=== PATIENT | male | born 1995 | race Two or more races ===

== ENCOUNTER 2017-03-03 16:06 | Inpatient (IN) | payer MEDICAID ==
[~2017-03-03] VITALS: Ht 182.9 cm; Wt 103.6 kg
[~2017-03-03 16:06] MED LIST: CITA-77 PO; LEVE500T22 PO; PHE100C PO; RIZA10TA24 PO
[2017-03-03] MEDS ORDERED: ONDANSETRON HCL 4 MG/2 ML VIAL IV ONE ×2 (17:30→21:00)
[2017-03-03] MEDS ORDERED: HYDROmorphone HCL 2 MG/ML VL IV ONE ×2 (17:30→21:00)
[2017-03-03] MEDS ORDERED: SODIUM CHLORIDE 0.9% 1,000 ML IV ONE (17:30)
[2017-03-03] MEDS ORDERED: LORazepam 2MG/ML-1ML VIAL IV ONE (17:30)
[2017-03-03 17:47] LABS: Basophils # (auto) 0 uL; Basophils % (auto) 0.4 % (0.0-2.0); Eosinophils # (auto) 0 uL; Eosinophils % (auto) 0.3 % (0.0-7.0); Hematocrit 47.3 % (41.0-53.0); Hemoglobin 15.6 g/dL (13.5-17.5); Lymphocytes # (auto) 1.7 uL; Lymphocytes % (auto) 20.4 % (10.0-50.0); Mean Corpuscular Hemoglobin 28.2 pg (28.0-32.0); Mean Corpuscular Volume 85.4 fL (80.0-100.0); Mean Platelet Volume 8.4 fL (7.4-10.4); Monocytes # (auto) 0.5 uL; Monocytes % (auto) 5.6 % (0.0-12.0); Neutrophils % (auto) 73.3 % (37.0-80.0); Platelet Count (auto) 235 10^3/uL (140-450); Red Cell Distribution Width 13.7 % (11.6-16.0); White Blood Cell 8.1 10^3/uL (4.4-10.8)
[2017-03-03 18:02] LABS: Albumin 3.8 g/dL (3.4-5.0); Calcium 8.2 mg/dL (8.5-10.1); Potassium 3.5 mmol/L (3.5-5.1)
[2017-03-03 18:04] LABS: BUN/Creatinine Ratio 15.2
[2017-03-03 18:10] LABS: Bilirubin, Total 0.4 mg/dL (0.2-1.0); Total Protein 6.7 g/dL (6.4-8.2)
[2017-03-03] MEDS ORDERED: KETOROLAC TROMETH 30 MG/ML 1ML VIAL IV ONE (20:00)
[2017-03-03] MEDS ORDERED: LORazepam 0.5 MG TAB PO PRN (21:30)
[2017-03-03] MEDS ORDERED: ONDANSETRON HCL 4 MG/2 ML VIAL IV PRN (21:30)
[2017-03-03] MEDS ORDERED: PHENYTOIN SODIUM 100 MG CAP PO SCH (22:00)
[2017-03-03] MEDS ORDERED: LEVETIRACETAM 500 MG TAB PO SCH (22:00)
[2017-03-03] MEDS: GABAPENTIN 300 MG CAP PO SCH (23:05)
[2017-03-03] MEDS: TOPIRAMATE 100 MG TAB PO SCH (23:06)
[2017-03-03 23:32] VITALS: BP 124/69
[2017-03-03 23:45] VITALS: BP 124/69
[2017-03-04 00:36] LABS: Urine Bilirubin Negative (Negative); Urine Blood Negative /uL (Negative); Urine Color Yellow (Yellow); Urine Glucose Normal (Normal); Urine Ketone Negative (Negative); Urine Mucus FEW (None Seen); Urine Nitrite Negative (Negative); Urine RBC <1 /hpf (0 - 3); Urine Squamous Epithelial Cell FEW /hpf (<5); Urine Urobilinogen Normal (Negative)
[2017-03-04] MEDS: OXYCODONE HCL 5MG TAB PO PRN ×3 (00:46→10:52)
[2017-03-04 05:19] VITALS: BP 111/60
[2017-03-04] MEDS: LORazepam 2MG/ML-1ML VIAL IV PRN ×5 (06:05→20:46)
[2017-03-04] MEDS: GABAPENTIN 300 MG CAP PO SCH ×2 (06:17→13:45)
[2017-03-04 08:00] VITALS: BP 133/92
[2017-03-04 09:00] VITALS: BP 133/94
[2017-03-04] MEDS: TOPIRAMATE 100 MG TAB PO SCH (10:00)
[2017-03-04] MEDS ORDERED: LEVETIRACETAM 500 MG TAB PO SCH (13:15)
[2017-03-04] MEDS ORDERED: ACETAMINOPHEN 325 MG TAB PO PRN (13:15)
[2017-03-04] MEDS ORDERED: HYDROcodone-ACET 5/325MG TAB PO PRN (13:15)
[2017-03-04] MEDS ORDERED: GABA300C PO (14:10)
[2017-03-04] MEDS ORDERED: TOPI100T29 PO (14:10)
[2017-03-04 15:13] VITALS: BP 123/80
[2017-03-04 16:55] VITALS: BP 133/94
[2017-03-04 17:50] VITALS: BP 120/72
== END 2017-03-04 21:07 | disposition home health service (06) | DRG 53 ==
LOC: EDBD 16:06 → ER 16:07 → TELE 16:08 → TELE-WESTW 23:07
PROVIDERS: ADMIT Internal Medicine; ATTEND Internal Medicine
DX: G40.909 Epilepsy, unspecified, not intractable, without status epilepticus (principal); F32.9 Major depressive disorder, single episode, unspecified; F41.9 Anxiety disorder, unspecified; R51 Headache; Z82.49 Family history of ischemic heart disease and other diseases of the circulatory system; Z83.3 Family history of diabetes mellitus; Z88.6 Allergy status to analgesic agent; Z88.8 Allergy status to other drugs, medicaments and biological substances; Z80.9 Family history of malignant neoplasm, unspecified
CPT/HCPCS: 36415; 70450; 72131; 73030; 73140; 80053; 81001; 85025; 93005; 96361; 96374; 96375; 96376; 99291; G0434; J2405

== ENCOUNTER 2017-06-05 15:31 | Inpatient (IN) | payer MEDICAID ==
[~2017-06-05] VITALS: Ht 177.8 cm; Wt 90.7 kg
[~2017-06-05 15:31] MED LIST changes: -CITA-77 PO; +GABA300C PO; -LEVE500T22 PO; -PHE100C PO; -RIZA10TA24 PO; +TOPI100T29 PO
[2017-06-05] MEDS ORDERED: LORazepam 2MG/ML-1ML VIAL ONE ×2 (15:57→16:39)
[2017-06-05] MEDS ORDERED: LORazepam 2MG/ML-1ML VIAL IV ONE ×3 (16:00→17:30)
[2017-06-05 16:13] LABS: Basophils # (auto) 0 uL; Basophils % (auto) 0.4 % (0.0-2.0); CONDITION Y; Eosinophils # (auto) 0 uL; Eosinophils % (auto) 0.6 % (0.0-7.0); Hematocrit 43.3 % (41.0-53.0); Hemoglobin 14.7 g/dL (13.5-17.5); Lymphocytes # (auto) 2.3 uL; Lymphocytes % (auto) 30.9 % (10.0-50.0); Mean Corpuscular Hemoglobin 28.9 pg (28.0-32.0); Mean Corpuscular Hgb Conc. 33.8 g/dL (32.0-36.0); Mean Corpuscular Volume 85.4 fL (80.0-100.0); Mean Platelet Volume 8.5 fL (7.4-10.4); Monocytes # (auto) 0.4 uL; Monocytes % (auto) 5.7 % (0.0-12.0); Neutrophils # (auto) 4.6 uL; Neutrophils % (auto) 62.4 % (37.0-80.0); Platelet Count (auto) 214 10^3/uL (140-450); Red Cell Distribution Width 13.7 % (11.6-16.0); White Blood Cell 7.4 10^3/uL (4.4-10.8)
[2017-06-05 16:25] LABS: Albumin 3.8 g/dL (3.4-5.0); BUN/Creatinine Ratio 15.5; Calcium 8.3 mg/dL (8.5-10.1); Potassium 3.3 mmol/L (3.5-5.1)
[2017-06-05 16:27] LABS: Bilirubin, Total 0.3 mg/dL (0.2-1.0); Total Protein 7.1 g/dL (6.4-8.2)
[2017-06-05 17:17] LABS: Urine Bilirubin Negative (Negative); Urine Blood Negative /uL (Negative); Urine Glucose Normal (Normal); Urine Ketone Negative (Negative); Urine Nitrite Negative (Negative); Urine RBC 1 /hpf (0 - 3); Urine Squamous Epithelial Cell FEW /hpf (<5); Urine Urobilinogen Normal (Negative); Urine pH 5.5 (5.0-8.0)
[2017-06-05 17:18] LABS: Urine Color Straw (Yellow)
[2017-06-05] MEDS ORDERED: NITROGLYCERIN 0.4 MG SL TAB SL PRN (21:30)
[2017-06-05] MEDS ORDERED: MORPHINE SULF INJ 2 MG/ML SYRINGE 1ML IV PRN (21:30)
[2017-06-05] MEDS ORDERED: ONDANSETRON HCL 4 MG/2 ML VIAL IV PRN (21:30)
[2017-06-05] MEDS: GABAPENTIN 300 MG CAP PO SCH (22:00)
[2017-06-05] MEDS: FAMOTIDINE 20 MG TAB PO SCH (22:00)
[2017-06-05] MEDS: SODIUM CHLORIDE 0.9% 1,000 ML IV SCH (22:00)
[2017-06-05] MEDS: TOPIRAMATE 100 MG TAB PO SCH (22:00)
[2017-06-06] VITALS (7 sets, daily range): BP systolic 115–143; BP diastolic 52–85
[2017-06-06] MEDS: GABAPENTIN 300 MG CAP PO SCH ×3 (06:14→21:16)
[2017-06-06 06:42] LABS: Basophils # (auto) 0 uL; Basophils % (auto) 0.3 % (0.0-2.0); CONDITION Y; Eosinophils # (auto) 0 uL; Eosinophils % (auto) 0.6 % (0.0-7.0); Hematocrit 44.4 % (41.0-53.0); Hemoglobin 14.9 g/dL (13.5-17.5); Lymphocytes # (auto) 1.7 uL; Lymphocytes % (auto) 27.1 % (10.0-50.0); Mean Corpuscular Hemoglobin 28.8 pg (28.0-32.0); Mean Corpuscular Hgb Conc. 33.5 g/dL (32.0-36.0); Mean Platelet Volume 8.6 fL (7.4-10.4); Monocytes # (auto) 0.5 uL; Monocytes % (auto) 7.4 % (0.0-12.0); Neutrophils # (auto) 3.9 uL; Neutrophils % (auto) 64.6 % (37.0-80.0); Platelet Count (auto) 205 10^3/uL (140-450); Red Cell Distribution Width 13.8 % (11.6-16.0); White Blood Cell 6.1 10^3/uL (4.4-10.8)
[2017-06-06] MEDS: HYDROcodone-ACET 5/325MG TAB PO PRN ×3 (06:50→18:17)
[2017-06-06 07:06] LABS: Potassium 3.7 mmol/L (3.5-5.1)
[2017-06-06 07:12] LABS: Albumin 3.7 g/dL (3.4-5.0); Calcium 8.2 mg/dL (8.5-10.1)
[2017-06-06 07:22] LABS: Bilirubin, Total 0.4 mg/dL (0.2-1.0)
[2017-06-06] MEDS: LORazepam 2MG/ML-1ML VIAL IV PRN ×6 (08:24→13:37)
[2017-06-06] MEDS: TOPIRAMATE 100 MG TAB PO SCH ×2 (09:55→21:17)
[2017-06-06] MEDS: FAMOTIDINE 20 MG TAB PO SCH ×2 (09:56→21:17)
[2017-06-06] MEDS: SODIUM CHLORIDE 0.9% 1,000 ML IV SCH (12:59)
[2017-06-06] MEDS: ALPRAZolam 0.25 MG TAB PO SCH ×2 (14:31→21:17)
[2017-06-07] MEDS: SODIUM CHLORIDE 0.9% 1,000 ML IV SCH ×2 (00:06→05:29)
[2017-06-07 05:00] VITALS: BP 102/64
[2017-06-07] MEDS: GABAPENTIN 300 MG CAP PO SCH (05:57)
[2017-06-07 07:45] VITALS: BP 124/71
[2017-06-07 07:45] LABS: BUN/Creatinine Ratio 10.1; Potassium 3.9 mmol/L (3.5-5.1)
[2017-06-07] MEDS: FAMOTIDINE 20 MG TAB PO SCH (09:55)
[2017-06-07] MEDS: ALPRAZolam 0.25 MG TAB PO SCH (09:55)
[2017-06-07] MEDS: TOPIRAMATE 100 MG TAB PO SCH (09:55)
[2017-06-07 11:24] VITALS: BP 118/74
== END 2017-06-07 16:22 | disposition home or self-care (01) | DRG 53 ==
LOC: EDBD 15:31 → ER 15:40 → TELE 15:41 → TELE-EAST 06-06 08:21
PROVIDERS: ADMIT Nurse Practitioner; ATTEND Internal Medicine
DX: G40.802 Other epilepsy, not intractable, without status epilepticus (principal); F32.9 Major depressive disorder, single episode, unspecified; F41.9 Anxiety disorder, unspecified; Z82.49 Family history of ischemic heart disease and other diseases of the circulatory system; Z83.3 Family history of diabetes mellitus; Z88.6 Allergy status to analgesic agent; Z88.8 Allergy status to other drugs, medicaments and biological substances; Z80.9 Family history of malignant neoplasm, unspecified
CPT/HCPCS: 36415; 70450; 80048; 80053; 81001; 83735; 85025

== ENCOUNTER 2017-06-07 16:53 | Inpatient (IN) | payer MEDICAID ==
[~2017-06-07] VITALS: Ht 182.9 cm; Wt 93.0 kg
[2017-06-07] MEDS ORDERED: SODIUM CHLORIDE 0.9% 1,000 ML IVB ONE (17:11)
[2017-06-07 17:46] LABS: Basophils # (auto) 0 uL; Basophils % (auto) 0.4 % (0.0-2.0); CONDITION Y; Eosinophils # (auto) 0 uL; Eosinophils % (auto) 0.5 % (0.0-7.0); Hematocrit 45.9 % (41.0-53.0); Hemoglobin 15.4 g/dL (13.5-17.5); Lymphocytes # (auto) 2.1 uL; Lymphocytes % (auto) 23.6 % (10.0-50.0); Mean Corpuscular Hemoglobin 28.9 pg (28.0-32.0); Mean Corpuscular Hgb Conc. 33.7 g/dL (32.0-36.0); Mean Corpuscular Volume 85.8 fL (80.0-100.0); Mean Platelet Volume 8.6 fL (7.4-10.4); Monocytes # (auto) 0.6 uL; Monocytes % (auto) 6.3 % (0.0-12.0); Neutrophils # (auto) 6.3 uL; Neutrophils % (auto) 69.2 % (37.0-80.0); Platelet Count (auto) 237 10^3/uL (140-450); Red Cell Distribution Width 13.8 % (11.6-16.0); White Blood Cell 9.1 10^3/uL (4.4-10.8)
[2017-06-07 18:01] LABS: Alkaline Phosphatase 88 U/L (45-117); Anion Gap 11 (5-15); Aspartate Aminotransferase 14 U/L (15-37); BUN/Creatinine Ratio 14.9; Bilirubin, Total 0.3 mg/dL (0.2-1.0); Blood Urea Nitrogen 14 mg/dL (7-18); Calcium 9.2 mg/dL (8.5-10.1); Carbon Dioxide 18 mmol/L (21-32); Chloride 110 mmol/L (98-107); GFR African American 129 mL/min; GFR Non-African American 107 mL/min; Glucose 96 mg/dL (74-106); Magnesium 2.4 mg/dL (1.6-2.6); Potassium 3.4 mmol/L (3.5-5.1); Sodium 139 mmol/L (136-145); Total Protein 7.2 g/dL (6.4-8.2)
[2017-06-07] MEDS ORDERED: HYDROcodone-ACET 5/325MG TAB PO ONE (20:30)
[2017-06-07] MEDS ORDERED: ONDANSETRON HCL 4 MG/2 ML VIAL IV PRN (21:30)
[2017-06-07] MEDS ORDERED: HYDROcodone-ACET 5/325MG TAB PO PRN (21:30)
[2017-06-07] MEDS ORDERED: ACETAMINOPHEN 325 MG TAB PO PRN (21:30)
[2017-06-07] MEDS ORDERED: MORPHINE SULF INJ 2 MG/ML SYRINGE 1ML IV PRN (21:30)
[2017-06-07] MEDS ORDERED: NITROGLYCERIN 0.4 MG SL TAB SL PRN (21:30)
[2017-06-07] MEDS ORDERED: LORazepam 2MG/ML-1ML VIAL IV PRN (21:30)
[2017-06-07] MEDS ORDERED: POTASSIUM CHL 20 Meq TABLET PO ONE (21:45)
[2017-06-07 22:30] VITALS: BP 88/48
[2017-06-07] MEDS: FAMOTIDINE 20 MG TAB PO SCH (23:24)
[2017-06-07] MEDS: GABAPENTIN 300 MG CAP PO SCH (23:24)
[2017-06-07] MEDS: TOPIRAMATE 100 MG TAB PO SCH (23:24)
[2017-06-07 23:36] VITALS: BP 88/48
[2017-06-08 05:00] VITALS: BP 81/43
[2017-06-08] MEDS: GABAPENTIN 300 MG CAP PO SCH (06:33)
[2017-06-08 08:00] VITALS: BP 105/65
[2017-06-08 09:00] VITALS: BP 105/65
[2017-06-08] MEDS: TOPIRAMATE 100 MG TAB PO SCH (10:11)
[2017-06-08] MEDS: FAMOTIDINE 20 MG TAB PO SCH (10:12)
[2017-06-08 11:13] VITALS: BP 105/65
== END 2017-06-08 12:40 | disposition home or self-care (01) | DRG 53 ==
LOC: EDBD 16:53 → ER 17:00 → TELE 17:01 → TELE-WESTW 22:40
PROVIDERS: ADMIT Internal Medicine; ATTEND Internal Medicine
DX: G40.802 Other epilepsy, not intractable, without status epilepticus (principal); F32.9 Major depressive disorder, single episode, unspecified; E87.6 Hypokalemia; E66.9 Obesity, unspecified; F41.9 Anxiety disorder, unspecified; Z82.49 Family history of ischemic heart disease and other diseases of the circulatory system; Z83.3 Family history of diabetes mellitus; Z88.6 Allergy status to analgesic agent; Z88.8 Allergy status to other drugs, medicaments and biological substances; Z80.9 Family history of malignant neoplasm, unspecified; Z68.27 Body mass index [BMI] 27.0-27.9, adult
CPT/HCPCS: 36415; 71010; 80053; 80307; 80320; 82962; 83735; 85025; 87081; 94761

== ENCOUNTER 2018-08-10 15:38 | Inpatient (IN) | payer MEDICAID ==
[~2018-08-10] VITALS: Ht 180.3 cm; Wt 117.9 kg
[2018-08-10] MEDS ORDERED: SODIUM CHLORIDE 0.9% 1,000 ML IV ONE (15:45)
[2018-08-10 17:04] LABS: Basophils # (auto) 0 uL; Basophils % (auto) 0.2 % (0.0-2.0); Eosinophils # (auto) 0 uL; Hematocrit 47.2 % (41.0-53.0); Hemoglobin 15.8 g/dL (13.5-17.5); Lymphocytes # (auto) 1.4 uL; Mean Corpuscular Hemoglobin 28.5 pg (28.0-32.0); Mean Corpuscular Hgb Conc. 33.5 g/dL (32.0-36.0); Mean Corpuscular Volume 85.3 fL (80.0-100.0); Monocytes # (auto) 0.5 uL; Monocytes % (auto) 4.5 % (0.0-12.0); Neutrophils # (auto) 9.8 uL; Neutrophils % (auto) 83.3 % (37.0-80.0); Platelet Count (auto) 212 10^3/uL (140-450); Red Blood Cells 5.53 10^6/uL (4.5-5.90); Red Cell Distribution Width 13.7 % (11.8-14.3); White Blood Cell 11.7 10^3/uL (4.4-10.8)
[2018-08-10 17:15] LABS: Albumin 4.2 g/dL (3.4-5.0); BUN/Creatinine Ratio 8.8; Bilirubin, Total 0.5 mg/dL (0.2-1.0); Calcium 8.6 mg/dL (8.5-10.1); Potassium 3.3 mmol/L (3.5-5.1); Total Protein 7.7 g/dL (6.4-8.2)
[2018-08-10] MEDS ORDERED: NITROGLYCERIN 0.4 MG SL TAB SL PRN (18:15)
[2018-08-10] MEDS ORDERED: LORazepam 2MG/ML-1ML VIAL IV PRN (18:15)
[2018-08-10] MEDS ORDERED: LORazepam 0.5 MG TAB PO PRN (18:15)
[2018-08-10] MEDS ORDERED: TEMAZEPAM 15 MG CAP PO PRN (18:15)
[2018-08-10] MEDS ORDERED: MORPHINE SULF INJ 2 MG/ML SYRINGE 1ML IV PRN (18:15)
[2018-08-10] MEDS ORDERED: ACETAMINOPHEN 500 MG TAB PO PRN (18:15)
[2018-08-10] MEDS ORDERED: LACTULOSE 20Gm/30ML SOLN PO PRN (18:15)
[2018-08-10] MEDS ORDERED: ONDANSETRON HCL 4 MG/2 ML VIAL IV PRN (18:15)
[2018-08-10] MEDS ORDERED: traMADol HCL 50 MG TAB PO PRN (18:15)
[2018-08-10] MEDS: SODIUM CHLORIDE 0.9% 1,000 ML IV SCH (18:18)
[2018-08-10 21:00] VITALS: BP 117/71
[2018-08-10] MEDS: GABAPENTIN 300 MG CAP PO SCH (21:25)
[2018-08-10] MEDS: LEVETIRACETAM 500 MG/5ML ORAL SOLN UD PO SCH (21:25)
[2018-08-10] MEDS: TOPIRAMATE 100 MG TAB PO SCH (23:01)
[2018-08-11] MEDS: HYDROcodone-ACET 5/325MG TAB PO PRN ×2 (01:47→08:32)
[2018-08-11 05:28] VITALS: BP 107/56
[2018-08-11 05:55] LABS: Basophils # (auto) 0 uL; Basophils % (auto) 0.3 % (0.0-2.0); Eosinophils # (auto) 0.1 uL; Eosinophils % (auto) 0.9 % (0.0-7.0); Hematocrit 44.6 % (41.0-53.0); Hemoglobin 14.7 g/dL (13.5-17.5); Lymphocytes # (auto) 2.5 uL; Lymphocytes % (auto) 40.4 % (10.0-50.0); Mean Corpuscular Hemoglobin 28.2 pg (28.0-32.0); Mean Corpuscular Volume 85.4 fL (80.0-100.0); Monocytes # (auto) 0.6 uL; Monocytes % (auto) 9.1 % (0.0-12.0); Neutrophils % (auto) 49.3 % (37.0-80.0); Platelet Count (auto) 192 10^3/uL (140-450); Red Blood Cells 5.22 10^6/uL (4.5-5.90); Red Cell Distribution Width 13.9 % (11.8-14.3); White Blood Cell 6.2 10^3/uL (4.4-10.8)
[2018-08-11] MEDS: GABAPENTIN 300 MG CAP PO SCH (06:00)
[2018-08-11 08:03] LABS: Alcohol, Urine < 3.0 mg/dL (0-5); Amphetamine Screen, Urine NEGATIVE (NEGATIVE); Barbiturate Scree,Urine NEGATIVE (NEGATIVE); Benzodiazephine Screen, Urine NEGATIVE (NEGATIVE); Cannabinoid Screen, Urine POSITIVE (NEGATIVE); Cocaine Screen, Urine NEGATIVE (NEGATIVE); Opiate Scree,Urine POSITIVE (NEGATIVE); Phencyclidine Screen, Urine NEGATIVE (NEGATIVE)
[2018-08-11 08:04] LABS: Urine Bacteria NONE SEEN /hpf (None Seen); Urine Blood Negative /uL (Negative); Urine Specific Gravity 1.009 (1.001-1.035); Urine WBC <1 /hpf (0 - 3)
[2018-08-11 08:44] VITALS: BP 129/80
[2018-08-11] MEDS: TOPIRAMATE 100 MG TAB PO SCH (09:49)
[2018-08-11] MEDS: SODIUM CHLORIDE 0.9% 1,000 ML IV SCH (09:51)
[2018-08-11] MEDS: LEVETIRACETAM 500 MG/5ML ORAL SOLN UD PO SCH (09:51)
[2018-08-11] MEDS ORDERED: ENOXAPARIN SOD 40 MG/0.4 ML SYRINGE SC SCH (10:00)
[2018-08-11 12:33] VITALS: BP 110/50
== END 2018-08-11 15:04 | disposition home or self-care (01) | DRG 53 ==
LOC: ER 15:38 → EDBD 15:38 → TELE 15:39 → TELE-WESTW 19:43
PROVIDERS: ADMIT Internal Medicine; ATTEND Internal Medicine
DX: G40.409 Other generalized epilepsy and epileptic syndromes, not intractable, without status epilepticus (principal); D72.829 Elevated white blood cell count, unspecified; E66.9 Obesity, unspecified; S00.83XA Contusion of other part of head, initial encounter; E87.6 Hypokalemia; F32.9 Major depressive disorder, single episode, unspecified; F17.200 Nicotine dependence, unspecified, uncomplicated; W18.39XA Other fall on same level, initial encounter; F41.9 Anxiety disorder, unspecified; Z68.36 Body mass index [BMI] 36.0-36.9, adult; Z88.6 Allergy status to analgesic agent; Z88.5 Allergy status to narcotic agent; Z88.8 Allergy status to other drugs, medicaments and biological substances; Y93.89 Activity, other specified; Y92.89 Other specified places as the place of occurrence of the external cause; Y99.8 Other external cause status; Z82.49 Family history of ischemic heart disease and other diseases of the circulatory system; Z83.3 Family history of diabetes mellitus
CPT/HCPCS: 36415; 70450; 71046; 80053; 80307; 81001; 85025; 85652; 87086; 96361; 96374

== ENCOUNTER 2019-01-08 08:28 | Emergency (ER) | payer MEDICAID ==
[~2019-01-08] VITALS: Ht 185.4 cm; Wt 127.0 kg
[~2019-01-08 08:28] MED LIST changes: -GABA300C PO
[2019-01-08] MEDS ORDERED: diphenhdrAMINE HCL 50 MG/1 ML VL ONE (09:12)
[2019-01-08] MEDS ORDERED: LORazepam 2MG/ML-1ML VIAL ONE (09:12)
[2019-01-08] MEDS ORDERED: HALOPERIDOL LACTATE 5 MG/ML INJ VIAL ONE (09:13)
[2019-01-08] MEDS ORDERED: diphenhdrAMINE HCL 50 MG/1 ML VL IV ONE (09:15)
[2019-01-08] MEDS ORDERED: LORazepam 2MG/ML-1ML VIAL IV ONE (09:15)
[2019-01-08] MEDS ORDERED: HALOPERIDOL LACTATE 5 MG/ML INJ VIAL IM ONE (09:15)
[2019-01-08 09:48] LABS: Basophils # (auto) 0 uL; Basophils % (auto) 0.3 % (0.0-2.0); Eosinophils # (auto) 0 uL; Eosinophils % (auto) 0.1 % (0.0-7.0); Hemoglobin 16.6 g/dL (13.5-17.5); Lymphocytes # (auto) 1.6 uL; Lymphocytes % (auto) 20.2 % (10.0-50.0); Mean Corpuscular Hemoglobin 28.8 pg (28.0-32.0); Mean Corpuscular Hgb Conc. 33.2 g/dL (32.0-36.0); Mean Corpuscular Volume 86.7 fL (80.0-100.0); Monocytes # (auto) 0.6 uL; Neutrophils # (auto) 5.8 uL; Neutrophils % (auto) 72.4 % (37.0-80.0); Nucleated Red Blood Cells % 0.2 %; Platelet Count (auto) 239 10^3/uL (140-450); Red Blood Cells 5.77 10^6/uL (4.5-5.90); Red Cell Distribution Width 13.3 % (11.8-14.3); White Blood Cell 8.1 10^3/uL (4.4-10.8)
[2019-01-08 10:07] LABS: Alanine Aminotransferase 29 U/L (16-61); Albumin 4.3 g/dL (3.4-5.0); Anion Gap 15 (5-15); Aspartate Aminotransferase 22 U/L (15-37); BUN/Creatinine Ratio 10.6; Blood Alcohol < 3.0 mg/dL (0-5); Blood Urea Nitrogen 11 mg/dL (7-18); Calcium 8.6 mg/dL (8.5-10.1); Carbon Dioxide 19 mmol/L (21-32); Chloride 107 mmol/L (98-107); GFR African American 114 mL/min; GFR Non-African American 94 mL/min; Glucose 124 mg/dL (74-106); Potassium 3.6 mmol/L (3.5-5.1); Salicylate < 1.7 mg/dL (2.8-20.0); Sodium 141 mmol/L (136-145)
[2019-01-08 10:10] LABS: Alkaline Phosphatase 91 U/L (45-117); Bilirubin, Total 0.5 mg/dL (0.2-1.0); Total Protein 7.8 g/dL (6.4-8.2)
[2019-01-08 10:29] LABS: Acetaminophen < 2.0 ug/mL (10-30)
[2019-01-08 11:47] LABS: Urine WBC None Seen /hpf (0 - 3)
[2019-01-08 12:20] LABS: Urine Amorphous Crystal FEW /hpf (None Seen); Urine Bacteria NONE SEEN /hpf (None Seen); Urine Blood Negative /uL (Negative); Urine Specific Gravity 1.005 (1.001-1.035); Urine Sperm PRESENT /hpf (None Seen)
[2019-01-08 12:24] LABS: Alcohol, Urine < 3.0 mg/dL (0-5); Amphetamine Screen, Urine NEGATIVE (NEGATIVE); Barbiturate Scree,Urine NEGATIVE (NEGATIVE); Benzodiazephine Screen, Urine NEGATIVE (NEGATIVE); Cannabinoid Screen, Urine POSITIVE (NEGATIVE); Cocaine Screen, Urine NEGATIVE (NEGATIVE); Opiate Scree,Urine NEGATIVE (NEGATIVE); Phencyclidine Screen, Urine NEGATIVE (NEGATIVE)
[2019-01-08] MEDS ORDERED: FLUoxetine HCL 20 MG CAP PO ONE (18:00)
[2019-01-08 18:04] VITALS: BP 110/70
== END 2019-01-08 18:21 | disposition home or self-care (01) ==
LOC: EDUNIT# 08:28 → EDBD 08:28 → ER 08:28
DX: S51.812A Laceration without foreign body of left forearm, initial encounter (principal); T65.92XA Toxic effect of unspecified substance, intentional self-harm, initial encounter; F41.9 Anxiety disorder, unspecified; F32.9 Major depressive disorder, single episode, unspecified; X78.9XXA Intentional self-harm by unspecified sharp object, initial encounter; Y93.89 Activity, other specified; Y92.098 Other place in other non-institutional residence as the place of occurrence of the external cause; Y99.8 Other external cause status
CPT/HCPCS: 36415; 80053; 80307; 80320; 80329; 81001; 85025; 93005; 96372; 96374; 96375; 99284; J1200; J1630; J2060

== ENCOUNTER 2019-12-04 14:51 | Inpatient (IN) | payer MEDICAID ==
[~2019-12-04] VITALS: Ht 182.9 cm; Wt 96.2 kg
[2019-12-04] MEDS ORDERED: LORazepam 2MG/ML-1ML VIAL ONE (17:09)
[2019-12-04] MEDS ORDERED: LORazepam 2MG/ML-1ML VIAL IV ONE (19:00)
[2019-12-04] MEDS ORDERED: SODIUM CHLORIDE 0.9% 1,000 ML IVB ONE (19:49)
[2019-12-04 20:33] LABS: Basophils # (auto) 0 uL; Basophils % (auto) 0.2 % (0.0-2.0); Eosinophils # (auto) 0 uL; Eosinophils % (auto) 0.1 % (0.0-7.0); Hematocrit 50.5 % (41.0-53.0); Hemoglobin 16.8 g/dL (13.5-17.5); Lymphocytes # (auto) 2.6 uL; Lymphocytes % (auto) 30.6 % (10.0-50.0); Mean Corpuscular Hemoglobin 29.1 pg (28.0-32.0); Mean Corpuscular Hgb Conc. 33.3 g/dL (32.0-36.0); Mean Corpuscular Volume 87.5 fL (80.0-100.0); Monocytes # (auto) 0.5 uL; Monocytes % (auto) 5.7 % (0.0-12.0); Neutrophils # (auto) 5.3 uL; Neutrophils % (auto) 63.4 % (37.0-80.0); Nucleated Red Blood Cells % 0.1 %; Platelet Count (auto) 181 10^3/uL (140-450); Red Blood Cells 5.77 10^6/uL (4.5-5.90); Red Cell Distribution Width 13.6 % (11.8-14.3); White Blood Cell 8.4 10^3/uL (4.4-10.8)
[2019-12-04 20:48] LABS: Albumin 4.1 g/dL (3.4-5.0); Magnesium 2.1 mg/dL (1.6-2.6); Potassium 3.9 mmol/L (3.5-5.1)
[2019-12-04 20:51] LABS: BUN/Creatinine Ratio 9.5
[2019-12-04 20:52] LABS: Bilirubin, Total 0.6 mg/dL (0.2-1.0); Total Protein 7.5 g/dL (6.4-8.2)
[2019-12-04 22:26] LABS: Urine Bacteria NONE SEEN /hpf (None Seen); Urine Blood Negative /uL (Negative); Urine Hyaline Cast FEW /lpf (0 - 2); Urine Specific Gravity 1.006 (1.001-1.035); Urine WBC 1 /hpf (0 - 3)
[2019-12-04] MEDS ORDERED: ONDANSETRON HCL 4 MG/2 ML VIAL IV PRN (22:30)
[2019-12-04] MEDS ORDERED: TEMAZEPAM 15 MG CAP PO PRN (22:30)
[2019-12-05] VITALS (7 sets, daily range): BP systolic 104–138; BP diastolic 54–85
--- NOTE | 2019-12-05 00:10 | NUR ---
MS admit from [facility] admitted to MS. Patient oriented to Alicia alarcon RN, unit, room, bed, and unit policies regarding patient care and visiting hours. Patient weighed by bedscale and encouraged to call if they need something. All questions and concerns addressed, patient verbalized understanding. Note: PATIENT PLACED ON SEIZURE AND FALL PRECAUTIONS
--- NOTE | 2019-12-05 00:30 | NUR ---
PAIN PATIENT C/O HEADACHE. NO ORDERS FOR PAIN MEDICATIONS AT THIS TIME PATIENT REQUESTS NORCO. ALLERGY TO ACETAMINOPHEN NOTED. PATIENT STATES HE IS ONLY ALLERGIC TO ACETAMINOPHEN IN "HIGH DOSES". PATIENT STATES THAT HE TAKES NORCO AT HOME THAT IS PRESCRIBED BY HIS NEUROLOGIST. MOTHER AT BEDSIDE AGREES TO PATIENT STATEMENT.
--- NOTE | 2019-12-05 01:10 | NUR ---
HOSPITALIST SPOKE WITH HOSPITALIST DUNIA PATIENT C/O HEADACHE, NO ORDERS FOR PAIN MEDICATION AT THIS TIME. NEW ORDER FOR NORCO 5/325MG Q8H PRN RECEIVED. ORDER READ BACK AND VERIFIED
[2019-12-05] MEDS: HYDROcodone-ACET 5/325MG TAB PO PRN ×3 (01:28→20:54)
[2019-12-05] MEDS ORDERED: ERGO20002 PO (04:42)
[2019-12-05 06:08] LABS: BUN/Creatinine Ratio 7.1; Potassium 3.7 mmol/L (3.5-5.1)
--- NOTE | 2019-12-05 07:04 | NUR ---
CLOSING PATIENT RESTING IN BED, NO S/S OF DISTRESS. SEIZURE AND FALL PRECAUTIONS IN PLACE, CALL LIGHT WITHIN REACH. WILL ENDORSE CARE TO DAYSHIFT RN
--- NOTE | 2019-12-05 07:28 | NUR ---
Received report from NOC shift Per report patient had a seizure around 0715am, no meds given, patient is post-ictal at this time. Vital signs stable. continue to monitor.
--- NOTE | 2019-12-05 07:50 | NUR ---
Opening Note Assumed care of patient, he is A & O x 4, no s/s of distress at this time. Patient appears to be lethargic, but alert. Patient had a seizure this morning. POC discussed with patient. Oriented patient to call light, to call if he feels a seizure coming on. Bed side rails are padded, bed alarm is on, suction set up at bedside, patient on 2L nasal cannula. Will continue to monitor Q1h and PRN.
--- NOTE | 2019-12-05 09:27 | NUR ---
Patient had seizure This RN was at bedside, when patient looked to be staring off in the distance. This RN asked if the patient was feeling ok, patient shook his head no. Patient began to gesture with arms in no specific manner, sat up in bed, unable to speak, taking deep breaths, laid back down, with arms gesturing towards neck and face, patient breathing hard and moaning. This RN called cupola charger Haylee to come to bedside. This RN went to get Ativan for patient. IV was displaced during movements. Once patient was gesturing less patient was given Ativan. Seizure lasted [id number]. Patient postictal unable to answer questions but cooperative. Reoriented patient. Patient A & O x4, at 0945, lethargic and weak, Vital signs BP 98/56, HR 88, O2 100, RR 20. Will continue to monitor Q1h and PRN.
[2019-12-05] MEDS: LORazepam 2MG/ML-1ML VIAL IV PRN (09:32)
--- NOTE | 2019-12-05 09:40 | NUR ---
Paged Dr. Nguyen.
--- NOTE | 2019-12-05 10:00 | NUR ---
Dr. Nguyen returned page Informed Dr. Nguyen that patient had a seizure this morning at 0715 and at 0927, ativan given at 0932. No further orders at this time. He has not seen patient yet.
--- NOTE | 2019-12-05 10:15 | NUR ---
Patient also stated he has lost 95 lbs in the past two months working out. Patient states "I am eating healthier, and working out, could this have anything to do with my seizures?". Dr. Donaldson at bedside at this time. Patient states "I used to be 300 lbs and now I am 205lbs"
--- NOTE | 2019-12-05 10:15 | NUR ---
Dr. Donaldson at bedside. Will consult Dr. Zamora for Neurology. Patient does not want any new medications added, he states "I see a doctor at [facility], he said not to add any meds without asking him." Will continue to monitor patient.
[2019-12-05] MEDS: TOPIRAMATE 100 MG TAB PO SCH ×2 (10:16→21:31)
[2019-12-05] MEDS: FAMOTIDINE 20 MG TAB PO SCH ×2 (10:17→21:30)
--- NOTE | 2019-12-05 15:00 | NUR ---
Patient sleeping at this time. Family at bedside. No s/s of distress. Will continue to monitor Q1h and PRN.
[2019-12-05] MEDS: SODIUM CHLORIDE 0.9% 1,000 ML IV SCH ×2 (15:20→18:35)
--- NOTE | 2019-12-05 16:40 | NUR ---
Paged Dr. Perkins Left message that family was unable to secure at follow up appointment at [facility] for patient, no appointments in the near future available. Left the phone number for [facility] neurologist that this RN received from family for Dr. Perkins. [facility] Dr. Agrawal - Neuro:
--- NOTE | 2019-12-05 17:00 | NUR ---
Patient sleeping at this time. Family at bedside. Informed family to notify this RN if they leave, also to notify if patient demonstrates any seizure activity immediately.
--- NOTE | 2019-12-05 17:54 | NUR ---
Spoke to Dr. Donaldson over telephone Informed him patient having headache 8 since he had a seizure this morning. Orders received, read back and verified. Will medicate per orders.
[2019-12-05] MEDS: MORPHINE SULF INJ 2 MG/ML SYRINGE 1ML IV PRN (18:35)
--- NOTE | 2019-12-05 19:30 | NUR ---
OPENING NOTE REPORT RECEIVED FROM DAY SHIFT RN PATIENT IS A/OX4, RESTING IN BED. FAMILY MEMBERS AT BEDSIDE. SEIZURE PRECAUTIONS AND FALL PRECAUTIONS ARE IN PLACE. POC DISCUSSED WITH PATIENT AND FAMILY. CALL LIGHT WITHIN REACH. WILL MONITOR CLOSELY.
[2019-12-06] MEDS: SODIUM CHLORIDE 0.9% 1,000 ML IV SCH ×3 (02:14→23:50)
[2019-12-06 04:56] VITALS: BP 104/65
[2019-12-06] MEDS: MORPHINE SULF INJ 2 MG/ML SYRINGE 1ML IV PRN ×3 (05:08→17:12)
[2019-12-06 06:03] LABS: Calcium 8.6 mg/dL (8.5-10.1); Potassium 3.6 mmol/L (3.5-5.1)
[2019-12-06 06:06] LABS: BUN/Creatinine Ratio 7.6
--- NOTE | 2019-12-06 06:59 | NUR ---
CLOSING PATIENT SLEEPING, NO S/S OF DISTRESS. NO SEIZURE ACTIVITY THROUGHOUT SHIFT. SEIZURE AND FALL PRECAUTIONS IN PLACE, CALL LIGHT WITHIN REACH. WILL ENDORSE CARE TO DAYSHIFT RN
--- NOTE | 2019-12-06 07:10 | NUR ---
OPENING SHIFT NOTES Assumed care of patient from assembler 1st shift RN. Patient is alert and oriented x4, no signs of distress noted. Bed alarm is on and patient is on seizure precautions. Patient was updated on the plan of care and verbalized understanding. Bed is locked in the lowest position, side rails up x2 and call light is in reach. Patient was encouraged to call for assistance.
[2019-12-06 09:00] VITALS: BP 130/81
[2019-12-06] MEDS: HYDROcodone-ACET 5/325MG TAB PO PRN ×2 (09:02→21:07)
[2019-12-06] MEDS: FAMOTIDINE 20 MG TAB PO SCH ×2 (09:41→22:28)
[2019-12-06] MEDS: TOPIRAMATE 100 MG TAB PO SCH ×2 (09:41→22:28)
[2019-12-06 13:00] VITALS: BP 136/85
--- NOTE | 2019-12-06 14:30 | NUR ---
Dr. Donaldson at bedside New orders received and carried out.
[2019-12-06] MEDS: LORazepam 2MG/ML-1ML VIAL IV PRN (15:39)
--- NOTE | 2019-12-06 16:28 | NUR ---
PATIENT HAD SEIZURE Patient family member came to nurse's station stating that the patient was having a seizure. This RN went into the room and there was another RN present, Keyana. This RN went to get Ativan as ordered. Patient was on his right side in bed, gesturing arms, towards chest and neck, with deep respirations with a rate of 20/minute, Oxygen was placed on patient at 2l/minute via Nasal Cannula. Patient was given Ativan as ordered. Patient began to lay back in bed, extremities relaxed. Seizure time [id number]. Dr. Donaldson was called at 1539. At 1541 Dr. Donaldson was at bedside and stated to "hold discharge". Patient was reoriented to person, place time and situation. Patient ANOx4 at 1604. Patient is weak. Vital signs: BP138/76 HR 110, RR 20, O2 Saturation 99. Will continue to monitor.
[2019-12-06 17:37] VITALS: BP 118/79
--- NOTE | 2019-12-06 18:55 | NUR ---
IV insertion IV access obtained, via clean sterile technique by inserting 20 gauge catheter at Left forearm after 3 attempts. IV secured properly. No trauma to site. Patient tolerated well. IV removal IV DC'd with clean sterile technique, catheter fully intact. Pressure dressing applied to site. Patient tolerated well.
--- NOTE | 2019-12-06 19:19 | NUR ---
CLOSING SHIFT NOTES Care endorsed to maintenance technician 3rd shift RN. No signs of distress noted
--- NOTE | 2019-12-06 19:32 | NUR ---
Opening Shift Note Received report and assumed care of patient. Patient is awake and alert. No signs or symptoms of distress noted. Family at bedside. Instructed patient and family on plan of care and to call for assistance as needed, call light within reach. Seizure precautions in place. Will continue to monitor.
[2019-12-06 22:00] VITALS: BP 119/69
[2019-12-07] MEDS: SODIUM CHLORIDE 0.9% 1,000 ML IV SCH ×3 (02:15→18:40)
[2019-12-07 05:00] VITALS: BP 110/79
--- NOTE | 2019-12-07 07:30 | NUR ---
Opening Shift Note Received report and assumed care of patient. Patient is awake, alert, and oriented. No signs or symptoms of distress, SOB. or pain noted. Instructed patient on plan of care and to call for assistance as needed, call light within reach. bed in lowest/locked position, bed rails up x2. Seizure precautions in place. Will continue to monitor q1h and PRN.
[2019-12-07 09:00] VITALS: BP 131/91
[2019-12-07] MEDS: TOPIRAMATE 100 MG TAB PO SCH ×2 (09:58→21:42)
[2019-12-07] MEDS: FAMOTIDINE 20 MG TAB PO SCH ×2 (09:58→21:42)
[2019-12-07] MEDS: MORPHINE SULF INJ 2 MG/ML SYRINGE 1ML IV PRN ×2 (09:58→16:49)
[2019-12-07 13:00] VITALS: BP 151/78
--- NOTE | 2019-12-07 14:00 | NUR ---
MD ROUNDS DR BRODERICK AT BEDSIDE DISCUSSING POC WITH PATIENT AND FAMILY. ALL QUESTIONS/CONCERNS ANSWERED. WILL CONTINUE TO MONITOR
[2019-12-07] MEDS: HYDROcodone-ACET 5/325MG TAB PO PRN (15:06)
[2019-12-07 17:00] VITALS: BP 115/70
[2019-12-07 20:20] VITALS: BP 124/77
--- NOTE | 2019-12-07 20:20 | NUR ---
Opening Shift Note Assumed care of patient, awake and alert. No S/S of distress/SOB. Patient is on 3 liters of oxygen via nasal cannula. Patient states he is on oxygen because earlier he felt short of breath. Patient's respirations are even and unlabored. Seizure precautions are present. Instructed on POC and to call for assist PRN, will continue to monitor for changes Q1hr and PRN.
[2019-12-07 22:00] VITALS: BP 124/77
[2019-12-08] MEDS: SODIUM CHLORIDE 0.9% 1,000 ML IV SCH ×4 (02:00→10:15)
[2019-12-08] MEDS: HYDROcodone-ACET 5/325MG TAB PO PRN (03:58)
[2019-12-08 05:00] VITALS: BP 104/64
[2019-12-08 06:44] LABS: Basophils # (auto) 0 uL; Basophils % (auto) 0.3 % (0.0-2.0); Eosinophils # (auto) 0.3 uL; Eosinophils % (auto) 4.8 % (0.0-7.0); Hematocrit 45.3 % (41.0-53.0); Hemoglobin 15.4 g/dL (13.5-17.5); Lymphocytes # (auto) 1.6 uL; Lymphocytes % (auto) 26.6 % (10.0-50.0); Mean Corpuscular Hemoglobin 29.2 pg (28.0-32.0); Mean Corpuscular Hgb Conc. 33.9 g/dL (32.0-36.0); Mean Corpuscular Volume 86.2 fL (80.0-100.0); Monocytes # (auto) 0.5 uL; Monocytes % (auto) 7.8 % (0.0-12.0); Neutrophils # (auto) 3.6 uL; Neutrophils % (auto) 60.5 % (37.0-80.0); Nucleated Red Blood Cells % 0.1 %; Platelet Count (auto) 166 10^3/uL (140-450); Red Blood Cells 5.26 10^6/uL (4.5-5.90)
--- NOTE | 2019-12-08 06:54 | NUR ---
CLOSING NOTE No S/S of distress/SOB. Patient is on 3 liters of oxygen via nasal cannula. Patient's respirations are even and unlabored. Seizure precautions are present.
[2019-12-08 07:07] LABS: Calcium 8.8 mg/dL (8.5-10.1); Magnesium 2.3 mg/dL (1.6-2.6); Potassium 3.6 mmol/L (3.5-5.1)
[2019-12-08 07:09] LABS: BUN/Creatinine Ratio 6.3
--- NOTE | 2019-12-08 08:00 | NUR ---
ASSESSMENT NOTE PT IS ALERT ORIENTED X4, RESTING IN BED COMFORTABLY, NO DISTRESS NOTED, ABLE TO SELF REPOSITION, AND VERBALIS HER DEMANDS, HEADACHE /, AMBULATE NEEDED AT ALL TIMES, NO ACTIVE SEIZURE NOTED, CALL LIGHT WITHIN REACH
[2019-12-08] MEDS: TOPIRAMATE 100 MG TAB PO SCH (08:57)
[2019-12-08] MEDS: FAMOTIDINE 20 MG TAB PO SCH (08:57)
[2019-12-08 09:00] VITALS: BP 109/68
--- NOTE | 2019-12-08 09:00 | NUR ---
[facility] APPOINTMENT PT STATED MY SISTER DID CALL,THEY SUPPOSE TO CALL US BACK
[2019-12-08] MEDS: MORPHINE SULF INJ 2 MG/ML SYRINGE 1ML IV PRN (11:15)
[2019-12-08 12:30] VITALS: BP 128/75
--- NOTE | 2019-12-08 12:54 | NUR ---
DR BRODERICK AT BED SIDE FOLLOWING UP ON PT WITH DISCHARGE HOME INSTRUCTION, PT VERBALIS UNDERSTANDING
--- NOTE | 2019-12-08 13:38 | NUR ---
FAMILY PATIENT'S SISTER AT BED SIDE
--- NOTE | 2019-12-08 14:06 | NUR ---
ALL DISCHARGE INSTRUCTION GIVEN TO PT, PATIENT SISITER, GRAND PARENTS AT BED SIDE AWARE PT IS WAITING FOR HIS PARENTS TO PICK HIM UP
== END 2019-12-08 14:17 | disposition home or self-care (01) | DRG 53 ==
LOC: EDBD 14:51 → ER 14:58 → CENTRAL 14:59
PROVIDERS: ADMIT Nurse Practitioner; ATTEND Internal Medicine
DX: G40.909 Epilepsy, unspecified, not intractable, without status epilepticus (principal); E87.2 Acidosis; S00.03XA Contusion of scalp, initial encounter; F41.9 Anxiety disorder, unspecified; W18.39XA Other fall on same level, initial encounter; Y93.89 Activity, other specified; Y92.89 Other specified places as the place of occurrence of the external cause; Y99.8 Other external cause status; Z88.5 Allergy status to narcotic agent; Z88.6 Allergy status to analgesic agent; Z88.8 Allergy status to other drugs, medicaments and biological substances; Z79.899 Other long term (current) drug therapy
CPT/HCPCS: 36415; 70450; 80048; 80053; 81001; 83735; 85025; 96361; 96374; 96376; G0378

== ENCOUNTER 2020-08-03 10:18 | Emergency (ER) | payer MEDICAID ==
[~2020-08-03] VITALS: Ht 175.3 cm; Wt 81.6 kg
[~2020-08-03 10:18] MED LIST changes: +ERGO20002 PO
[2020-08-03] MEDS ORDERED: LORazepam 2MG/ML-1ML VIAL IV ONE (10:30)
[2020-08-03] MEDS ORDERED: SODIUM CHLORIDE 0.9% 1,000 ML IV ONE (10:55)
[2020-08-03] MEDS ORDERED: SODIUM CHLORIDE 0.9% 500 ML IVB ONE (10:55)
[2020-08-03 10:58] LABS: Basophils # (auto) 0 10 ^3/uL (0-0.2); Eosinophils # (auto) 0 10 ^3/uL (0-0.8); Neutrophils # (auto) 2.7 10 ^3/uL (1.6-8.6); Platelet Count (auto) 238 10^3/uL (140-450); White Blood Cell 4.7 10^3/uL (4.4-10.8)
[2020-08-03 11:02] LABS: Basophils % (auto) 0.1 % (0.0-2.0); Eosinophils % (auto) 0.5 % (0.0-7.0); Hematocrit 52.8 % (41.0-53.0); Hemoglobin 17.6 g/dL (13.5-17.5); Lymphocytes # (auto) 1.7 10 ^3/uL (0.4-5.4); Lymphocytes % (auto) 35.7 % (10.0-50.0); Mean Corpuscular Hemoglobin 28.8 pg (28.0-32.0); Mean Corpuscular Hgb Conc. 33.2 g/dL (32.0-36.0); Mean Corpuscular Volume 86.6 fL (80.0-100.0); Monocytes # (auto) 0.4 10 ^3/uL (0-1.3); Monocytes % (auto) 7.4 % (0.0-12.0); Neutrophils % (auto) 56.3 % (37.0-80.0); Nucleated Red Blood Cells % 0.2 %; Red Cell Distribution Width 13.4 % (11.8-14.3)
[2020-08-03 11:48] LABS: Potassium 3.5 mmol/L (3.5-5.1)
[2020-08-03 11:59] LABS: Albumin 4.5 g/dL (3.4-5.0); BUN/Creatinine Ratio 6.6; Bilirubin, Total 0.8 mg/dL (0.2-1.0); Calcium 9.1 mg/dL (8.5-10.1); Total Protein 7.8 g/dL (6.4-8.2)
[2020-08-03 13:30] LABS: Urine Bacteria NONE SEEN /hpf (None Seen); Urine Blood Negative /uL (Negative); Urine Specific Gravity 1.003 (1.001-1.035); Urine WBC <1 /hpf (0 - 3)
[2020-08-03 13:36] LABS: Alcohol, Urine < 3.0 mg/dL (0-10); Amphetamine Screen, Urine NEGATIVE (NEGATIVE); Barbiturate Scree,Urine NEGATIVE (NEGATIVE); Benzodiazephine Screen, Urine NEGATIVE (NEGATIVE); Cannabinoid Screen, Urine POSITIVE (NEGATIVE); Cocaine Screen, Urine NEGATIVE (NEGATIVE); Phencyclidine Screen, Urine NEGATIVE (NEGATIVE)
[2020-08-03 13:43] LABS: Opiate Scree,Urine NEGATIVE (NEGATIVE)
[2020-08-03] MEDS ORDERED: TOPIRAMATE 100 MG TAB PO ONE (15:30)
[2020-08-03 16:01] VITALS: BP 115/63
== END 2020-08-03 16:05 | disposition home or self-care (01) ==
LOC: ER 10:18 → EDBD 10:18 → ER 16:05
DX: G40.909 Epilepsy, unspecified, not intractable, without status epilepticus (principal)
CPT/HCPCS: 36415; 71046; 80053; 80307; 81001; 83735; 84443; 85025; 93005; 96361; 96374; 99285; J2060

== ENCOUNTER 2020-08-06 18:54 | Inpatient (IN) | payer MEDICAID ==
[~2020-08-06] VITALS: Ht 182.9 cm; Wt 88.6 kg
[2020-08-06] MEDS ORDERED: LORazepam 2MG/ML-1ML VIAL ONE (19:31)
[2020-08-06] MEDS ORDERED: LORazepam 2MG/ML-1ML VIAL IM ONE (19:45)
[2020-08-06] MEDS ORDERED: LORazepam 2MG/ML-1ML VIAL IV ONE (19:45)
[2020-08-06] MEDS ORDERED: TOPIRAMATE 100 MG TAB PO ONE (21:00)
[2020-08-06 21:09] LABS: Basophils # (auto) 0 10 ^3/uL (0-0.2); Basophils % (auto) 0.1 % (0.0-2.0); Eosinophils # (auto) 0 10 ^3/uL (0-0.8); Eosinophils % (auto) 0.1 % (0.0-7.0); Hematocrit 48.8 % (41.0-53.0); Hemoglobin 16.2 g/dL (13.5-17.5); Lymphocytes # (auto) 1.7 10 ^3/uL (0.4-5.4); Lymphocytes % (auto) 15.8 % (10.0-50.0); Mean Corpuscular Hemoglobin 28.5 pg (28.0-32.0); Mean Corpuscular Hgb Conc. 33.2 g/dL (32.0-36.0); Mean Corpuscular Volume 85.8 fL (80.0-100.0); Monocytes # (auto) 0.6 10 ^3/uL (0-1.3); Monocytes % (auto) 6.2 % (0.0-12.0); Neutrophils # (auto) 8.1 10 ^3/uL (1.6-8.6); Neutrophils % (auto) 77.8 % (37.0-80.0); Platelet Count (auto) 212 10^3/uL (140-450); Red Blood Cells 5.69 10^6/uL (4.5-5.90); Red Cell Distribution Width 13.3 % (11.8-14.3); White Blood Cell 10.5 10^3/uL (4.4-10.8)
[2020-08-06 21:24] LABS: INR 1.1 (0.9-1.15); Partial Thromboplastin Time 28.7 sec (23.0-31.2)
[2020-08-06 21:25] LABS: Albumin 4.1 g/dL (3.4-5.0); Potassium 3.6 mmol/L (3.5-5.1)
[2020-08-06 21:27] LABS: BUN/Creatinine Ratio 9.8
[2020-08-06 21:30] LABS: Bilirubin, Total 0.6 mg/dL (0.2-1.0); Total Protein 7.3 g/dL (6.4-8.2)
[2020-08-06] MEDS ORDERED: levETIRAcetam 500 MG TAB PO ONE (23:30)
[2020-08-06] MEDS ORDERED: ONDANSETRON HCL 4 MG/2 ML VIAL IV PRN (23:30)
[2020-08-06] MEDS ORDERED: TEMAZEPAM 15 MG CAP PO PRN (23:30)
[2020-08-07] VITALS (7 sets, daily range): BP systolic 91–129; BP diastolic 51–88
--- NOTE | 2020-08-07 00:15 | NUR ---
MS admit from ER Patient admitted to tele/MS and oriented to primary RN, unit, room, bed, and unit policies regarding patient care and visiting hours. Seizure precautions in place. Bed is in lowest position and locked. Call light within reach. Board updated. Patient weighed by bedscale and encouraged to call if they need something. All questions and concerns addressed, patient verbalized understanding.
[2020-08-07] MEDS ORDERED: TOPI100T29 PO (01:04)
--- NOTE | 2020-08-07 08:15 | NUR ---
SEIZURE ACTIVITY PATIENT SET OFF BED ALARM. PATIENT STANDING NEXT TO BED, ALERT, NO VERBAL COMMUNICATION. ASSISTED PATIENT BACK TO BED, ON HIS SIDE. PATIENT CLINCHED TEETH AND SLIGHT JERK MOVEMENTS FOR APPROXIMATELY 5 MINS. MEDICATED PER MD ORDERS. NOTICED PATIENT MORE RELAXED. PATIENT WILL CONTINUE TO MONITOR
--- NOTE | 2020-08-07 08:15 | NUR ---
Opening Shift Note Assumed care of patient, awake and alert. No S/S of SOB or pain. Bed in lowest/locked position, bed rails up x2, call light within reach, seizure precautions in place. Instructed on POC and to call for assist PRN. Will continue to monitor for changes Q1hr and PRN.
[2020-08-07] MEDS: LORazepam 2MG/ML-1ML VIAL IV PRN ×2 (08:20→11:20)
--- NOTE | 2020-08-07 11:20 | NUR ---
SEIZURE ACTIVITY ROUNDING ON PATIENT WITNESSED PATIENT CLINCHING TEETH, SNORING, AND SLIGHT JERK MOVEMENTS FOR APPROXIMATELY 5 MINS. MEDICATED PER MD ORDERS. PATIENT ABLE TO NOD HEAD YES OR NO TO QUESTIONS, NONVERBAL. PATIENT WILL CONTINUE TO MONITOR
--- NOTE | 2020-08-07 12:04 | NUR ---
PAGEShiela SAHU RE: PATIENT SEIZURE ACTIVITY AND PO MEDICATIONS. AWAITING RETURN CALL
--- NOTE | 2020-08-07 12:37 | NUR ---
Nutrition Consult/assessment Notes please see attached link for complete assessment Est energy needs BW [id number] kcal (25-30 kcal/kg BW), Est protein needs 88-105 g (1-1.2g/kgBW). Will reassess prn Addendum: 08/07/20 at [address] Amended: Links added.
--- NOTE | 2020-08-07 12:55 | NUR ---
ROUNDS PATIENT ALERT & ORIENTED X3 AT THIS TIME. PATIENT ASKED "CAN I USE THE BATHROOM?" ASSISTED PATIENT TO BATHROOM, STEADY GAIT. WILL CONTINUE TO MONITOR
[2020-08-07] MEDS: FAMOTIDINE 20 MG TAB PO SCH ×2 (13:15→21:29)
[2020-08-07] MEDS: TOPIRAMATE 100 MG TAB PO SCH ×2 (13:15→21:29)
--- NOTE | 2020-08-07 14:14 | NUR ---
MD ROUNDS DR SAHU AT BEDSIDE DISCUSSING POC WITH PATIENT. NEW ORDERS RECEIVED/ WILL CARRY OUT. WILL CONTINUE TO MONITOR
[2020-08-07] MEDS ORDERED: LORazepam 2MG/ML-1ML VIAL IV PRN ×2 (14:15→23:00)
[2020-08-07] MEDS: LACTULOSE 20Gm/30ML SOLN PO SCH ×2 (15:51→18:16)
[2020-08-07] MEDS: SODIUM CHLORIDE 0.9% 1,000 ML IV SCH (15:51)
--- NOTE | 2020-08-07 17:51 | NUR ---
BM PATIENT REPORTED "HE HAD A SMALL BM."
--- NOTE | 2020-08-07 17:51 | NUR ---
LAB UA SENT TO LAB PER MD ORDERS
[2020-08-07 18:10] LABS: Amphetamine Screen, Urine NEGATIVE (NEGATIVE); Barbiturate Scree,Urine NEGATIVE (NEGATIVE); Benzodiazephine Screen, Urine NEGATIVE (NEGATIVE); Cannabinoid Screen, Urine POSITIVE (NEGATIVE); Cocaine Screen, Urine NEGATIVE (NEGATIVE); Opiate Scree,Urine NEGATIVE (NEGATIVE)
[2020-08-07 18:17] LABS: Phencyclidine Screen, Urine NEGATIVE (NEGATIVE)
--- NOTE | 2020-08-07 19:24 | NUR ---
Opening Shift Note Assumed care of patient, awake and alert x 4. No S/S of distress/SOB or pain.Seizure precautions in place. Bed is in lowest position and locked. Call light within reach. Board updated. Instructed on POC and to call for assist PRN, will continue to monitor for changes Q1hr and PRN.
--- NOTE | 2020-08-07 22:22 | NUR ---
MD Nguyen in to see patient. No new orders received.
[2020-08-08] MEDS: SODIUM CHLORIDE 0.9% 1,000 ML IV SCH ×2 (00:27→10:30)
--- NOTE | 2020-08-08 00:30 | NUR ---
Patient refused lactulose. States he has had three bowel movements today after receiving first dose of lactulose. He does not want any more.
[2020-08-08 05:00] VITALS: BP 106/81
[2020-08-08] MEDS: LACTULOSE 20Gm/30ML SOLN PO SCH ×4 (06:00→18:00)
--- NOTE | 2020-08-08 07:35 | NUR ---
Opening Shift Note Received report from acute care registered nurse RN. Assumed care of patient, awake and alert. No S/S of distress/SOB or pain. Instructed on POC and to call for assist PRN, will continue to monitor for changes.
[2020-08-08 09:00] VITALS: BP 108/70
[2020-08-08] MEDS: FAMOTIDINE 20 MG TAB PO SCH (10:08)
[2020-08-08] MEDS: TOPIRAMATE 100 MG TAB PO SCH (10:08)
[2020-08-08 13:00] VITALS: BP 108/67
--- NOTE | 2020-08-08 13:05 | NUR ---
SEIZURE Patient in bed ?B next to patient called stating "he's having a seizure". Upon arrival in room, patient in semi-fowlers position, fixed stare with all extremities stiff, V/S 149/91, HR 117 bpm, O2 @ 98% on room air, supplemental oxygen placed at @ LPM via nasal cannula with sats @ 99%. Seizure protocol initiated, Ativan administered via IVP. Suction remains at bedside for PRN. Will remain at bedside and monitor.
--- NOTE | 2020-08-08 13:10 | NUR ---
Paged Dr Nguyen to notify of patient's seizure activity. Awaiting return call.
--- NOTE | 2020-08-08 13:15 | NUR ---
POST SEIZURE Patient in postictal state, O2 remains on @ 2LPM via nasal cannula with sats @ 99%. Head of bed remains in semi-fowlers. Patient's extremities relaxed but patient remains non-responsive with a fixed stare. Seizure precautions remain in place, will continue to monitor.
--- NOTE | 2020-08-08 15:00 | NUR ---
Re-paged Dr Nguyen. No return call from first page. Awaiting return call.
--- NOTE | 2020-08-08 15:10 | NUR ---
Return call received from Dr Nguyen, notified of reason for call, verbalized understanding. No new orders received at this time. Patient remains sleepy. No further seizure activity noted. Seizure precautions remain in place.
--- NOTE | 2020-08-08 15:25 | NUR ---
PAGEShiela ALBRIGHT PAGED DR SAHU TO MAKE HIM AWARE PT'S EARLIER SEIZURE.
--- NOTE | 2020-08-08 15:41 | NUR ---
Return call received from Dr Ca, informed for reason for call. Verbalized he will send a prescription electronically for Ativan, P.O. Patient updated on plan of care, verbalized understanding.
--- NOTE | 2020-08-08 15:45 | NUR ---
CALLED BACK DR SAHU MADE AWARE OF PT EARLIER SEIZURE TODAY. PER RN PEGGY LUIS TO D/C AND HE WILL SEND RX FOR ATIVAN TO PT PHARMACY.
[2020-08-08 16:03] VITALS: BP 116/76
[2020-08-08 16:09] VITALS: BP 116/76
--- NOTE | 2020-08-08 18:05 | NUR ---
DISCHARGE Discharge instructions given to pt as ordered. Encouraged pt to follow up with PMD as instructed, and neurology as ordered. All questions and concerns addressed. Patient verbalized understanding. Medication reconciliation form completed and copy given to patient. IV removed with catheter intact, pressure dressing applied. Patient taken to vehicle with all personal belongings, accompanied by staff. No distress noted at time of departure.
== END 2020-08-08 18:20 | disposition home or self-care (01) | DRG 53 ==
LOC: ER 18:54 → EDBD 18:54 → OVERFLOW 18:55 → CENTRAL 23:57
PROVIDERS: ADMIT Nurse Practitioner; ATTEND Hospitalist
DX: G40.409 Other generalized epilepsy and epileptic syndromes, not intractable, without status epilepticus (principal); F17.200 Nicotine dependence, unspecified, uncomplicated; F41.9 Anxiety disorder, unspecified; K59.00 Constipation, unspecified; Z79.899 Other long term (current) drug therapy; I25.2 Old myocardial infarction; Z82.49 Family history of ischemic heart disease and other diseases of the circulatory system; Z83.3 Family history of diabetes mellitus; Z88.5 Allergy status to narcotic agent; Z88.6 Allergy status to analgesic agent; Z88.8 Allergy status to other drugs, medicaments and biological substances
CPT/HCPCS: 36415; 70450; 80053; 80307; 84484; 85025; 85379; 85610; 85730; 96372; 96374; G0378

== ENCOUNTER 2020-08-10 14:41 | Inpatient (IN) | payer MEDICAID ==
[~2020-08-10] VITALS: Ht 188 cm; Wt 91.5 kg
[2020-08-10] MEDS ORDERED: LORazepam 2MG/ML-1ML VIAL ONE ×2 (15:07→17:07)
[2020-08-10] MEDS ORDERED: LORazepam 2MG/ML-1ML VIAL IV ONE ×3 (15:15→18:38)
[2020-08-10 15:18] LABS: Basophils # (auto) 0 10 ^3/uL (0-0.2); Basophils % (auto) 0.3 % (0.0-2.0); Eosinophils # (auto) 0 10 ^3/uL (0-0.8); Neutrophils # (auto) 3.3 10 ^3/uL (1.6-8.6)
[2020-08-10 15:20] LABS: Eosinophils % (auto) 0.5 % (0.0-7.0); Hematocrit 51.8 % (41.0-53.0); Hemoglobin 17.5 g/dL (13.5-17.5); Lymphocytes # (auto) 2.3 10 ^3/uL (0.4-5.4); Lymphocytes % (auto) 37.8 % (10.0-50.0); Mean Corpuscular Hemoglobin 28.9 pg (28.0-32.0); Mean Corpuscular Hgb Conc. 33.7 g/dL (32.0-36.0); Mean Corpuscular Volume 85.7 fL (80.0-100.0); Monocytes # (auto) 0.4 10 ^3/uL (0-1.3); Monocytes % (auto) 7.2 % (0.0-12.0); Neutrophils % (auto) 54.2 % (37.0-80.0); Nucleated Red Blood Cells % 0.4 %; Platelet Count (auto) 231 10^3/uL (140-450); Red Blood Cells 6.04 10^6/uL (4.5-5.90); Red Cell Distribution Width 13.6 % (11.8-14.3)
[2020-08-10 15:37] LABS: Albumin 4.6 g/dL (3.4-5.0); Calcium 9.2 mg/dL (8.5-10.1); Potassium 3.3 mmol/L (3.5-5.1)
[2020-08-10 15:40] LABS: BUN/Creatinine Ratio 9.3; Bilirubin, Total 0.7 mg/dL (0.2-1.0)
[2020-08-10] MEDS ORDERED: POTASSIUM CHL 20MEQ/100ML 100 ML IV ONE (16:00)
[2020-08-10] MEDS ORDERED: NITROGLYCERIN 0.4 MG SL TAB SL PRN ×2 (16:15→19:00)
[2020-08-10] MEDS ORDERED: MORPHINE SULF INJ 2 MG/ML SYRINGE 1ML IV PRN ×2 (16:15→19:00)
[2020-08-10] MEDS ORDERED: LORA1TAB23 PO (16:15)
[2020-08-10] MEDS ORDERED: TOPIRAMATE 100 MG TAB PO ONE (16:30)
[2020-08-10] MEDS ORDERED: TOPI100T29 PO (16:37)
[2020-08-10] MEDS ORDERED: LORazepam 2MG/ML-1ML VIAL IV PRN (19:00)
[2020-08-10] MEDS ORDERED: VALPROATE INJ 1,000 MG in SODIUM CHL 0.9% 100 ML IV ONE (19:00)
[2020-08-10 20:35] VITALS: BP 123/71
[2020-08-10] MEDS: TOPIRAMATE 100 MG TAB PO SCH (22:05)
[2020-08-11 05:00] VITALS: BP 105/59
[2020-08-11 07:45] VITALS: BP 119/73
[2020-08-11] MEDS ORDERED: VALPROATE INJ 500 MG in SODIUM CHL 0.9% 100 ML IV SCH ×2 (08:00→20:00)
[2020-08-11 09:00] VITALS: BP 119/73
[2020-08-11] MEDS: TOPIRAMATE 100 MG TAB PO SCH ×2 (09:03→21:25)
[2020-08-11 13:00] VITALS: BP 107/63
[2020-08-11 17:00] VITALS: BP 100/66
[2020-08-11] MEDS: FLUTICASONE PROP NASAL SPR 0.05 % (50MCG) 16GM EACHNOSTRI SCH (21:25)
[2020-08-11 21:31] VITALS: BP 111/65
[2020-08-12 05:00] VITALS: BP_SYST 90; BP_SYST 97; BP_DIAS 68; BP_DIAS 71
[2020-08-12 08:30] VITALS: BP 109/61
[2020-08-12 09:00] VITALS: BP 109/61
[2020-08-12] MEDS: FLUTICASONE PROP NASAL SPR 0.05 % (50MCG) 16GM EACHNOSTRI SCH (09:08)
[2020-08-12] MEDS: TOPIRAMATE 100 MG TAB PO SCH (09:08)
[2020-08-12] MEDS ORDERED: VALPROIC ACID 250 MG/5 ML ORAL SOLN PO SCH (10:00)
[2020-08-12] MEDS ORDERED: DIVA500T53 PO ×2 (10:39→10:49)
[2020-08-12] MEDS ORDERED: TOPI100T29 PO (10:49)
[2020-08-12 13:00] VITALS: BP 112/73
[2020-08-12] MEDS ORDERED: HYDROcodone-ACET 5/325MG TAB PO ONE (14:30)
== END 2020-08-12 14:42 | disposition home or self-care (01) | DRG 53 ==
LOC: EDBD 14:41 → ER 14:41 → TELE 14:42 → TELE-WESTW 20:35
PROVIDERS: ADMIT Hospitalist; ATTEND Hospitalist
DX: G40.409 Other generalized epilepsy and epileptic syndromes, not intractable, without status epilepticus (principal); F41.9 Anxiety disorder, unspecified; E11.9 Type 2 diabetes mellitus without complications; Z79.899 Other long term (current) drug therapy; Z82.3 Family history of stroke; Z82.49 Family history of ischemic heart disease and other diseases of the circulatory system; Z83.3 Family history of diabetes mellitus; Z88.6 Allergy status to analgesic agent; Z88.5 Allergy status to narcotic agent; Z88.8 Allergy status to other drugs, medicaments and biological substances
CPT/HCPCS: 36415; 80053; 80164; 82550; 84146; 85025; G0378; J7060

== ENCOUNTER 2020-11-14 09:45 | Emergency (ER) | payer MEDICAID, OTHER ==
[~2020-11-14] VITALS: Ht 172.7 cm; Wt 81.6 kg
[~2020-11-14 09:45] MED LIST changes: +DIVA500T53 PO; +LORA1TAB23 PO
[2020-11-14] MEDS ORDERED: LORazepam 2MG/ML-1ML VIAL ONE (11:13)
[2020-11-14] MEDS ORDERED: LORazepam 2MG/ML-1ML VIAL IM ONE (11:15)
[2020-11-14 12:50] LABS: Albumin 3.9 g/dL (3.4-5.0); Calcium 8.7 mg/dL (8.5-10.1); Potassium 3.6 mmol/L (3.5-5.1)
[2020-11-14 12:53] LABS: Bilirubin, Total 0.5 mg/dL (0.2-1.0)
[2020-11-14 13:08] LABS: Basophils # (auto) 0 10 ^3/uL (0-0.2); Basophils % (auto) 0.1 % (0.0-2.0); Eosinophils # (auto) 0 10 ^3/uL (0-0.8); Eosinophils % (auto) 0.2 % (0.0-7.0); Hemoglobin 16.1 g/dL (13.5-17.5); Lymphocytes # (auto) 1.5 10 ^3/uL (0.4-5.4); Lymphocytes % (auto) 27.8 % (10.0-50.0); Mean Corpuscular Hemoglobin 29.5 pg (28.0-32.0); Mean Corpuscular Hgb Conc. 33.5 g/dL (32.0-36.0); Mean Corpuscular Volume 88.1 fL (80.0-100.0); Monocytes # (auto) 0.5 10 ^3/uL (0-1.3); Monocytes % (auto) 8.9 % (0.0-12.0); Neutrophils # (auto) 3.4 10 ^3/uL (1.6-8.6); Nucleated Red Blood Cells % 0.1 %; Platelet Count (auto) 174 10^3/uL (140-450); Red Blood Cells 5.45 10^6/uL (4.5-5.90); Red Cell Distribution Width 13.8 % (11.8-14.3); White Blood Cell 5.4 10^3/uL (4.4-10.8)
[2020-11-14 19:00] VITALS: BP 119/82
== END 2020-11-15 00:42 | disposition home or self-care (01) ==
LOC: EDUNIT# 09:45 → ER 09:45 → EDBD 09:45 → ER 11-15 00:42
DX: S00.83XA Contusion of other part of head, initial encounter (principal); G40.909 Epilepsy, unspecified, not intractable, without status epilepticus; R41.82 Altered mental status, unspecified; M54.2 Cervicalgia; W01.0XXA Fall on same level from slipping, tripping and stumbling without subsequent striking against object, initial encounter; Y93.89 Activity, other specified; Y92.89 Other specified places as the place of occurrence of the external cause; Y99.8 Other external cause status
CPT/HCPCS: 36415; 70450; 72125; 80053; 85025; 96372; 99285; J2060

== ENCOUNTER 2020-11-17 10:50 | Emergency (ER) | payer MEDICAID ==
[~2020-11-17] VITALS: Ht 177.8 cm; Wt 68.0 kg
[2020-11-17] MEDS ORDERED: TOPIRAMATE 100 MG TAB PO ONE (11:45)
[2020-11-17 11:54] LABS: Basophils # (auto) 0 10 ^3/uL (0-0.2); Basophils % (auto) 0.1 % (0.0-2.0); Eosinophils # (auto) 0 10 ^3/uL (0-0.8); Eosinophils % (auto) 0.2 % (0.0-7.0); Hematocrit 51.5 % (41.0-53.0); Hemoglobin 17.2 g/dL (13.5-17.5); Lymphocytes # (auto) 1.3 10 ^3/uL (0.4-5.4); Lymphocytes % (auto) 23.5 % (10.0-50.0); Mean Corpuscular Hemoglobin 29.8 pg (28.0-32.0); Mean Corpuscular Hgb Conc. 33.5 g/dL (32.0-36.0); Monocytes # (auto) 0.5 10 ^3/uL (0-1.3); Monocytes % (auto) 8.7 % (0.0-12.0); Neutrophils # (auto) 3.7 10 ^3/uL (1.6-8.6); Neutrophils % (auto) 67.5 % (37.0-80.0); Nucleated Red Blood Cells % 0.1 %; Platelet Count (auto) 169 10^3/uL (140-450); Red Blood Cells 5.79 10^6/uL (4.5-5.90); Red Cell Distribution Width 13.8 % (11.8-14.3); White Blood Cell 5.4 10^3/uL (4.4-10.8)
[2020-11-17 12:11] LABS: Calcium 8.7 mg/dL (8.5-10.1); Magnesium 2.4 mg/dL (1.6-2.6); Potassium 3.6 mmol/L (3.5-5.1)
[2020-11-17 12:14] LABS: BUN/Creatinine Ratio 10.3; Bilirubin, Total 0.4 mg/dL (0.2-1.0); Total Protein 7.8 g/dL (6.4-8.2)
[2020-11-17] MEDS ORDERED: HYDROcodone-ACET 5/325MG TAB PO ONE (12:15)
[2020-11-17] MEDS ORDERED: TETANUS-DIPTH-ACEL PERTUSSIS 0.5ML SYR Tdap IM ONE (13:00)
[2020-11-17 13:23] VITALS: BP 115/62
== END 2020-11-17 14:50 | disposition home or self-care (01) ==
LOC: ER 10:50 → EDBD 10:50 → ER 14:50
DX: S01.81XA Laceration without foreign body of other part of head, initial encounter (principal); R56.9 Unspecified convulsions; W19.XXXA Unspecified fall, initial encounter; Y93.89 Activity, other specified; Y92.89 Other specified places as the place of occurrence of the external cause; Y99.8 Other external cause status
CPT/HCPCS: 36415; 70450; 71045; 72125; 73130; 80053; 83735; 85025

== ENCOUNTER 2021-10-09 22:46 | Emergency (ER) | payer MEDICAID ==
[~2021-10-09] VITALS: Ht 182.9 cm; Wt 108.9 kg
[~2021-10-09 22:46] MED LIST changes: +DIVA500T2 PO; -DIVA500T53 PO
[2021-10-10 00:06] LABS: Basophils # (auto) 0 10 ^3/uL (0-0.2); Basophils % (auto) 0.1 % (0.0-2.0); Eosinophils # (auto) 0.1 10 ^3/uL (0-0.8); Eosinophils % (auto) 1.1 % (0.0-7.0); Hematocrit 47.4 % (41.0-53.0); Hemoglobin 15.8 g/dL (13.5-17.5); Lymphocytes # (auto) 1.5 10 ^3/uL (0.4-5.4); Lymphocytes % (auto) 23.8 % (10.0-50.0); Mean Corpuscular Hemoglobin 28.4 pg (28.0-32.0); Mean Corpuscular Hgb Conc. 33.2 g/dL (32.0-36.0); Mean Corpuscular Volume 85.6 fL (80.0-100.0); Monocytes # (auto) 0.7 10 ^3/uL (0-1.3); Monocytes % (auto) 11.5 % (0.0-12.0); Neutrophils % (auto) 63.5 % (37.0-80.0); Nucleated Red Blood Cells % 0.1 %; Red Blood Cells 5.54 10^6/uL (4.5-5.90); Red Cell Distribution Width 13.2 % (11.8-14.3); White Blood Cell 6.2 10^3/uL (4.4-10.8)
[2021-10-10 00:27] LABS: Albumin 3.9 g/dL (3.4-5.0); BUN/Creatinine Ratio 8.9; Calcium 8.9 mg/dL (8.5-10.1); Potassium 3.7 mmol/L (3.5-5.1)
[2021-10-10 00:29] LABS: Bilirubin, Total 0.6 mg/dL (0.2-1.0)
[2021-10-10] MEDS ORDERED: IOHEXOL 300 MG/ML 100ML BOTTLE IJ ONE (02:20)
[2021-10-10 07:39] LABS: Urine Bacteria NONE SEEN /hpf (None Seen); Urine Blood Negative /uL (Negative); Urine Specific Gravity 1.021 (1.001-1.035); Urine WBC <1 /hpf (0 - 3)
[2021-10-10] MEDS ORDERED: TOPIRAMATE 100 MG TAB PO ONE (09:45)
[2021-10-10 10:16] VITALS: BP 112/68
== END 2021-10-10 09:42 | disposition home or self-care (01) ==
LOC: ER 22:47
DX: R56.9 Unspecified convulsions (principal); K59.00 Constipation, unspecified; Z79.899 Other long term (current) drug therapy; Z88.6 Allergy status to analgesic agent; Z88.8 Allergy status to other drugs, medicaments and biological substances
CPT/HCPCS: 36415; 74177; 80053; 81001; 83605; 85025; 93005; 99285; Q9967

== ENCOUNTER 2025-02-18 08:30 | Emergency (ER) | payer MEDICAID ==
[~2025-02-18] VITALS: Ht 182.9 cm; Wt 142.1 kg
[~2025-02-18 08:30] MED LIST changes: +DIVA-91 PO; -DIVA500T2 PO; +LORA-1121 PO; +LORA-1123 PO; -LORA1TAB23 PO
[2025-02-18 09:23] VITALS: BP 141/91; PULSE 76; RESP 17; TEMP 99; O2SAT 100
--- NOTE | 2025-02-18 09:47 | DVH ---
CHEST RADIOGRAPH Indication: cough x 1 month Technique: Single frontal view of the chest was obtained Comparison: CHEST XRAY 1 VIEW on DOS: 11/17/20 FINDINGS: Lines and Tubes: None Lungs: No focal consolidation. Pleura: No effusion. No pneumothorax. Cardiomediastinal contours: Unremarkable Bones: No acute osseous abnormality. IMPRESSION: 1. No acute cardiopulmonary disease.
[2025-02-18 09:51] LABS: Basophils # (auto) 0 10 ^3/uL (0-0.2); Basophils % (auto) 0.3 % (0.0-2.0); Eosinophils # (auto) 0.1 10 ^3/uL (0-0.8); Eosinophils % (auto) 1.8 % (0.0-7.0); Hematocrit 52.9 % (41.0-53.0); Hemoglobin 17.5 g/dL (13.5-17.5); Lymphocytes # (auto) 1.5 10 ^3/uL (0.4-5.4); Lymphocytes % (auto) 21.8 % (10.0-50.0); Mean Corpuscular Hemoglobin 28.7 pg (28.0-32.0); Mean Corpuscular Hgb Conc. 33.1 g/dL (32.0-36.0); Mean Corpuscular Volume 86.7 fL (80.0-100.0); Monocytes # (auto) 0.5 10 ^3/uL (0-1.3); Monocytes % (auto) 7.7 % (0.0-12.0); Neutrophils # (auto) 4.8 10 ^3/uL (1.6-8.6); Neutrophils % (auto) 68.4 % (37.0-80.0); Nucleated Red Blood Cells % 0.1 %; Platelet Count (auto) 245 10^3/uL (140-450); Red Cell Distribution Width 13.9 % (11.8-14.3); White Blood Cell 7.1 10^3/uL (4.4-10.8)
[2025-02-18 09:53] LABS: Potassium 3.5 mmol/L (3.5-5.1); Sodium 141 mmol/L (136-145)
[2025-02-18 09:54] LABS: Anion Gap 11 (5-15)
[2025-02-18 09:55] LABS: Calcium 9.9 mg/dL (8.7-10.4); Carbon Dioxide 18 mmol/L (20-31); Chloride 112 mmol/L (98-107)
[2025-02-18 09:59] LABS: Glucose 99 mg/dL (74-106)
[2025-02-18 10:00] LABS: BUN/Creatinine Ratio 4.9 (10.0-20.0); Blood Urea Nitrogen < 5 mg/dL (9-23)
[2025-02-18] MEDS ORDERED: ACET500T58 PO (10:29)
[2025-02-18] MEDS ORDERED: BENZ100C97 PO (10:29)
[2025-02-18] MEDS ORDERED: ALBU108A5 IN (10:29)
[2025-02-18] MEDS ORDERED: KETOROLAC TROMETH 30 MG/ML 1ML VIAL IM ONE (10:30)
--- NOTE | 2025-02-18 10:31 | ED.PDOC ---
SOB-HPI HPI Comments This is a pleasant 29-year-old male with a pertinent MHx that presents with a chief complaint sore throat, nasal congestion, nonproductive cough, intermittent chest pain for one month chest pain is located to the mid sternum patient. CP comes and goes with no specific pattern. Taking [id number] Tylenol with some improvement. Denies fevers chills night sweats unintentional weight loss Denies persistent chest pain, shortness of breath, leg swelling Denies history of asthma nor any breathing conditions Denies history of pneumonia Denies recent international travel Chief Complaint: Flu like Time Seen by MD: 08:58 Primary Care Provider: MAXWELL Reviewed notes: Nurses Notes, Medications, Allergies Information Source: Patient Mode of Arrival: Ambulatory Past Medical History PAST MEDICAL HISTORY: Seizures Surgical History: Denies all surgeries Family History Family History: Reviewed,noncontributory to illness Social History Smoker: Non-Smoker Alcohol: Denies ETOH Use Drugs: Denies Drug Use Lives In: Home All Other Systems: Reviewed and Negative (per hpi) Physical Exam General Appearance: No Apparent Distress, Normal HEENT: Normal ENT Inspection, Pharynx Normal, TMs Normal Neck: Full Range of Motion, Non-Tender, Normal, Normal Inspection Respiratory: Chest Non-Tender, Lungs Clear, No Accessory Muscle Use, No Respiratory Distress, Normal Breath Sounds Cardiovascular: No Edema, No JVD, No Murmur, No Gallop, Normal Peripheral Pulses, Regular Rate/Rhythm Breast Exam: Deferred Gastrointestinal: No Organomegaly, Non Tender, No Pulsatile Mass, Normal Bowel Sounds, Soft Genitalia: Deferred Pelvic: Deferred Rectal: Deferred Extremities: No calf tenderness, Normal capillary refill, Normal inspection, Normal range of motion, Non-tender, No pedal edema Musculoskeletal : Apperance: Normal Neurologic: Alert, mexican food cook II-XII nml as Tested, No Motor Deficits, Normal Affect, Normal Mood, No Sensory Deficits Cerebellar Function: Normal Reflexes: Normal Skin: Dry, Normal Color, Warm Lymphatic: No Adenopathy Was a procedure done? Was a procedure done?: No Differential Dx Differential Diagnosis: Asthma, Bronchitis, Pneumonia, URI X-Ray, Labs, Meds, VS Vital Signs Date Time Temp Pulse Resp B/P (MAP) Pulse Ox O2 Delivery O2 Flow Rate FiO2 02/18/25 09:23 76 17 100 Room Air 02/18/25 09:23 99.0 76 17 141/91 (108) 100 99.0 02/18/25 08:53 99.0 76 17 187/99 (128) 100 99.0 Lab Test 02/18/25 09:34 Range/Units White Blood Count 7.1 4.4-10.8 10^3/uL Red Blood Count 6.10 H 4.5-5.90 10^6/uL Hemoglobin 17.5 13.5-17.5 g/dL Hematocrit 52.9 41.0-53.0 % Mean Corpuscular Volume 86.7 80.0-100.0 fL Mean Corpuscular Hemoglobin 28.7 28.0-32.0 pg Mean Corpuscular Hemoglobin Concent 33.1 32.0-36.0 g/dL Red Cell Distribution Width 13.9 11.8-14.3 % Platelet Count 245 140-450 10^3/uL Mean Platelet Volume 8.3 6.9-10.8 fL Neutrophils (%) (Auto) 68.4 37.0-80.0 % Lymphocytes (%) (Auto) 21.8 10.0-50.0 % Monocytes (%) (Auto) 7.7 0.0-12.0 % Eosinophils (%) (Auto) 1.8 0.0-7.0 % Basophils (%) (Auto) 0.3 0.0-2.0 % Neutrophils # (Auto) 4.8 1.6-8.6 10 ^3/uL Lymphocytes # (Auto) 1.5 0.4-5.4 10 ^3/uL Monocytes # (Auto) 0.5 0-1.3 10 ^3/uL Eosinophils # (Auto) 0.1 0-0.8 10 ^3/uL Basophils # (Auto) 0 0-0.2 10 ^3/uL Nucleated Red Blood Cells 0.1 % Sodium Level 141 136-145 mmol/L Potassium Level 3.5 3.5-5.1 mmol/L Chloride Level 112 H 98-107 mmol/L Carbon Dioxide Level 18 L 20-31 mmol/L Anion Gap 11 5-15 Blood Urea Nitrogen < 5 L 9-23 mg/dL Creatinine 1.03 0.700-1.30 mg/dL Glomerular Filtration Rate Calc 101 >90 mL/min BUN/Creatinine Ratio 4.9 L 10.0-20.0 Serum Glucose 99 74-106 mg/dL Calcium Level 9.9 8.7-10.4 mg/dL Troponin I High Sensitivity < 3 L </=54 ng/L X-Ray, Labs, Meds, VS Comment History and physical consistent of URI Labs and CXR ordered and reviewed Findings reassuring Take medication as prescribed No concerns for pneumonia at this time. No risk factors. No indication for antibiotics Discussed that cough can linger up to 6 weeks after viral URI ED precautions if cough does not alleviate or if cough worsens Supportive care and return precautions discussed Counseled viral infection and explained that antibiotics would not be helpful in resolving the illness sooner. Recommended vitamin C, rest, handwashing, and symptomatic care. Expect 2-week course with possibly of cough lingering up to 6 weeks. Nonpharmacological remedies for fluids has been recommended as well On reevaluation, patient had symptomatic improvement. Patient is stable for discharge at this time. External notes reviewed. Test results and diagnostic imaging interpreted. All diagnostic findings, discharge care, education and instructions provided Follow-up with PCP in 2 to 3 days Patient verbalized understanding and agreed to treatment plan Vital signs stable, afebrile, no acute distress noted Patient ambulatory with strong steady gait Advised to return precautions for any new or worsening symptoms, return to ER immediately for re-evaluation Patient is aware that the purpose of this visit was for an acute medical e mergency requiring emergent stabilization. Chronic conditions, including malignancies have not been ruled out. Patient is instructed to follow up with PCP as directed and discharge instructions for continued care and workup. If unable to arrange follow-up, patient is to return to the emergency department for reassessment. Patient (parent or legal guardian if applicable) was given verbal and written discharge instructions and acknowledges understanding. Time of 1ST Reevaluation: 10:28 Reevaluation 1ST: Improved Patient Education/Counseling: Diagnosis, Treatment Family Education/Counseling: Diagnosis, Treatment Departure 1 Departure Time of Disposition: 10:28 Impression: Primary Impression: Viral syndrome Disposition: HOME / SELF CARE / HOMELESS Condition: Stable e-Prescriptions Benzonatate (Benzonatate) 100 Mg Cap 1 CAP PO TID for 10 Days, #30 CAP 0 Refills Prov: LIO [employer] 02/18/ Acetaminophen (Acetaminophen) 500 Mg Tab 500 MG PO Q6HP PRN for 10 Days, #40 TAB 0 Refills Prov: LIO [employer] 02/18/25 Albuterol Sulfate (Albuterol Sulfate Hfa) 108 Mcg/Act Aer 108 MCG IN Q6HP PRN for 30 Days, #1 AER 0 Refills Prov: LIO [employer] 02/18/25 Discharged With: Self Critical Care Note Critical Care Time?: No Stability Stability form required: No Heart Score Heart Score: Heart Score Response (Comments) Value History N/A 0 EKG N/A 0 Age N/A 0 Risk Factors N/A 0 Troponin N/A 0 Total 0 LIO [employer] Feb 18, 2025 10:31
== END 2025-02-18 10:34 | disposition home or self-care (01) ==
LOC: ER 08:30
DX: B34.9 Viral infection, unspecified (principal)
CPT/HCPCS: 36415; 71045; 80048; 84484; 85025